=== PATIENT | male | born 1945 | race Caucasian/White ===

== ENCOUNTER 2021-05-27 09:20 | Emergency (ER) | payer MEDICARE ==
[~2021-05-27] VITALS: Ht 188 cm; Wt 106.6 kg
[2021-05-27] MEDS ORDERED: ACET-66 PO (10:13)
[2021-05-27] MEDS ORDERED: ONDA4TAB10 PO (10:13)
[2021-05-27] MEDS ORDERED: D-ME118S47 PO (10:13)
[2021-05-27] MEDS ORDERED: AZIT1PAC7 PO (10:13)
[2021-05-27 10:20] LABS: INFLUENZA TYPE A NEGATIVE FOR TYPE A (NEG); INFLUENZA TYPE B NEGATIVE FOR TYPE B (NEG)
[2021-05-27] MEDS ORDERED: GUAIFENESIN-CODEINE 5 ML SYRUP PO ONE (10:30)
[2021-05-27 10:32] VITALS: BP 122/80
== END 2021-05-27 10:33 | disposition home or self-care (01) ==
LOC: EDH 09:20
DX: U07.1 COVID-19 (principal); I10 Essential (primary) hypertension; E11.9 Type 2 diabetes mellitus without complications; Z88.0 Allergy status to penicillin
CPT/HCPCS: 87635; 87804 ×2; 99283; C9803

== ENCOUNTER 2023-05-27 11:36 | Emergency (ER) | payer MEDICARE ==
[~2023-05-27] VITALS: Ht 188 cm; Wt 106.6 kg
[~2023-05-27 11:36] MED LIST: ACET-66 PO; AZIT1PAC7 PO; BROM118S48 PO; ONDA4TAB10 PO
[2023-05-27 11:55] VITALS: BP 133/85; PULSE 56; RESP 16; O2SAT 96
[2023-05-27] MEDS ORDERED: IBUP-2070 PO (16:08)
== END 2023-05-27 16:18 | disposition home or self-care (01) ==
LOC: EDH 11:36
DX: S80.11XA Contusion of right lower leg, initial encounter (principal); I48.91 Unspecified atrial fibrillation; E11.9 Type 2 diabetes mellitus without complications; I10 Essential (primary) hypertension; W21.07XA Struck by softball, initial encounter; Y93.89 Activity, other specified; Y92.89 Other specified places as the place of occurrence of the external cause; Y99.8 Other external cause status
CPT/HCPCS: 73590; 93971